=== PATIENT | female | born 1950 | race Caucasian/White ===

== ENCOUNTER 2019-03-29 15:06 | Emergency (ER) | payer OTHER, MEDICARE ==
[~2019-03-29] VITALS: Ht 160 cm; Wt 92.5 kg
[~2019-03-29 15:06] MED LIST: St. John's Wor150 MG
[2019-03-29] MEDS ORDERED: Robaxin500 MG PO (17:15)
== END 2019-03-29 17:21 | disposition home or self-care (01) ==
LOC: ER 15:06
DX: M54.2 Cervicalgia (principal); V43.52XA Car driver injured in collision with other type car in traffic accident, initial encounter; Z88.6 Allergy status to analgesic agent; Z87.891 Personal history of nicotine dependence
CPT/HCPCS: 70450; 72125; 96372; 99284-25; J1885

== ENCOUNTER 2019-05-11 11:07 | Emergency (ER) | payer OTHER, MEDICARE ==
[~2019-05-11] VITALS: Ht 160 cm; Wt 90.7 kg
[~2019-05-11 11:07] MED LIST changes: +Robaxin500 MG PO
[2019-05-11 12:28] LABS: BASOPHILS ABSOLUTE AUTO 0.03 K/mm3 (0.00-0.23); BASOPHILS PERCENT AUTO 1 % (0-2); EOSINOPHILS ABSOLUTE AUTO 0.14 K/mm3 (0.00-0.68); EOSINOPHILS PERCENT AUTO 3 % (0-6); Hematocrit 36.7 % (33.0-51.0); IMMATURE GRAN PERCENT AUTO 0 % (0-1); LYMPHOCYTES ABSOLUTE AUTO 1.67 K/mm3 (0.84-5.20); LYMPHOCYTES PERCENT AUTO 29 % (21-46); MONOCYTES ABSOLUTE AUTO 0.42 K/mm3 (0.16-1.47); MONOCYTES PERCENT AUTO 7 % (4-13); Mean Corpuscular HGB 31.2 pg (26.0-34.0); Mean Corpuscular HGB Conc 32.7 g/dL (31.5-36.5); Mean Corpuscular Volume 95 fL (80-100); Mean Platelet Volume 9.3 fL (9.1-12.4); NEUTROPHILS ABSOLUTE AUTO 3.45 K/mm3 (1.96-9.15); NEUTROPHILS PERCENT AUTO 60 % (41-73); Platelet Count 324 K/mm3 (150-400); RDW Coefficient Variation 12.4 % (11.7-14.2); RDW Standard Deviation 43.6 fL (35.1-46.3); Red Blood Cell Count 3.85 M/mm3 (3.80-5.20); White Blood Cell Count 5.71 K/mm3 (4.00-11.30)
== END 2019-05-11 13:50 | disposition home or self-care (01) ==
LOC: ER 11:07
PROVIDERS: Internal Medicine
DX: Z71.1 Person with feared health complaint in whom no diagnosis is made (principal); Z88.6 Allergy status to analgesic agent
CPT/HCPCS: 36415; 70450; 85025; 99284-25

== ENCOUNTER 2023-10-12 13:16 | Emergency (ER) | payer OTHER, MEDICARE ==
[~2023-10-12] VITALS: Ht 160 cm; Wt 86.2 kg
[~2023-10-12 13:16] MED LIST changes: +Pepcid40 MG PO
[2023-10-12 14:45] VITALS: BP 122/78
[2023-10-12] MEDS ORDERED: Methocarbamol750 MG PO (15:37)
== END 2023-10-12 15:43 | disposition home or self-care (01) ==
LOC: ER 13:16
DX: R51.9 Headache, unspecified (principal); M54.2 Cervicalgia; T14.90XA Injury, unspecified, initial encounter; Z88.6 Allergy status to analgesic agent; Z79.899 Other long term (current) drug therapy; Z87.891 Personal history of nicotine dependence; V89.2XXA Person injured in unspecified motor-vehicle accident, traffic, initial encounter; Y92.411 Interstate highway as the place of occurrence of the external cause
CPT/HCPCS: 70450; 99284-25

== ENCOUNTER 2025-02-13 13:42 | Emergency (ER) | payer MEDICARE ==
[~2025-02-13] VITALS: Ht 160 cm; Wt 85.3 kg
[~2025-02-13 13:42] MED LIST changes: +Methocarbamol750 MG PO
[2025-02-13 16:33] VITALS: BP 140/73
[2025-02-13] MEDS ORDERED: TRAZ50 PO (16:35)
[2025-02-13] MEDS ORDERED: BUPR75 (16:35)
[2025-02-13] MEDS ORDERED: MELA3 (16:35)
[2025-02-13] MEDS ORDERED: BUPROPION HCL200 M1 PO (16:35)
[2025-02-13] MEDS ORDERED: TRAM50 PO (16:35)
[2025-02-13] MEDS ORDERED: MECL12.5 (16:35)
[2025-02-13] MEDS ORDERED: PSEUDOEPHEDRINE30 M1 (16:36)
== END 2025-02-13 16:38 | disposition home or self-care (01) ==
LOC: ER 13:42
DX: G91.2 (Idiopathic) normal pressure hydrocephalus (principal); R27.0 Ataxia, unspecified; Z88.6 Allergy status to analgesic agent; Z91.040 Latex allergy status; Z79.899 Other long term (current) drug therapy
CPT/HCPCS: 99284